=== PATIENT | female | born 2000 ===

== ENCOUNTER → 2020-11-12 08:25 | Outpatient (CLI) | payer OTHER, SELFPAY ==
--- NOTE | ~2020-11-12 | MR_ITS ---
EXAMINATION: MR wrist RT wo con DATE: 11/12/2020 09:18 INDICATION: Right wrist pain TECHNIQUE: Magnetic resonance imaging (MRI) of the right wrist was performed without intravenous cont rast. Sequences performed include axial PD-weighted FSE and PD-weighted FS FSE, coronal PD-weighted F S FSE and T1-weighted SE, and sagittal PD-weighted FS FSE and PD-weighted FSE. COMPARISON: None FINDINGS: Intrinsic ligaments: The scapholunate and lunotriquetral ligaments are normal. Triangular fibrocartilage complex (TFCC): The triangular fibrocartilage including its foveal and styloid attachments as well as the dorsal and volar radioulnar ligaments are normal. The ulnar collateral ligament, ulnotriquetral ligament and men iscal homologue are normal. There is a tear of the extensor carpi ulnaris (ECU) subsheath allowing pa rtial subluxation of the extensor carpi ulnaris tendon across the ulnar rim of the ECU groove. Extensor wrist: Extensor tendons of the wrist are normal. No tenosynovitis. Flexor wrist: The flexor tendons of the wrist are normal. No abnormality in the carpal tunnel with normal median n erve. Guyon's canal: Guyon's canal including the ulnar nerve and artery are normal. Bones/other: 4 mm ulnar minus variance. Normal marrow signal. No fracture, erosions, avascular necrosis or abnorma l marrow replacing process. Joint spaces are normal with no focal cartilage defects appreciated. IMPRESSION: 1. Ulnar minus variance and likely tear of the extensor carpi ulnaris subsheath. Otherwise unremarkab le right wrist MRI. Reviewed, dictated and finalized at location A. IMPRESSION: 1. Ulnar minus variance and likely tear of the extensor carpi ulnaris subsheath . Otherwise unremarkable right wrist MRI.
== END ==
PROVIDERS: Visit Provider Nurse Practitioner Family
DX: M25.531 Pain in right wrist (principal)
CPT/HCPCS: 73221